=== PATIENT | female | born 1990 | race Caucasian/White ===

== ENCOUNTER 2016-05-20 00:15 | Emergency (ER) | payer SELFPAY ==
[2016-05-20 00:31] VITALS: BP 118/70; PULSE 79; TEMP 98.3; BMI 29.8
--- NOTE | 2016-05-20 00:37 | EDPRACDOC ---
- General Information Chief Complaint: Earache Stated Complaint: RT EARACHE Time Seen by Provider: 05/20/16 00:32 Home Medications: Home Medications Fluticasone Propionate [Flonase Nasal Metz] 2 spray ROQEU DAILY #1 each 05/20/16 Ibuprofen Tablet [Motrin] 800 mg PO TID PRN #30 tab 05/20/16 Loratadine/Pseudoephedrine Sul [Claritin-D 12 Hour Tablet] 1 each PO BID #30 tab.sr.12h 05/20/16 Allergies/Adverse Reactions: Allergies Allergy/AdvReac Type Severity Reaction Status Date / Time No Known Allergies Allergy Verified 05/20/16 00:30 - History of Present Illness Onset: 2 DAYS HPI: PT STATES THAT SHE SNEEZED 2 DAYS AGO, HAS HAD SEVERE THROBBING PAIN IN RIGHT EAR SINCE, STATES RIGHT SIDE OF HER FACE FEELS "NUMB AND TINGLY", PT DENIES FEVER OR CHILLS, NO N/V/D. PT STATES USING "GOODY POWDER" WITHOUT RELIEF. Location: right ear Context: Reports: Spontaneous Onset Recently Treated Ear Infection: Reports: No Pain Severity: Reports: Severe Associated Signs & Symptoms: Reports: Other (RIGHT FACIAL PAIN/TINGLING, SNEEZING). Denies: Fever, Chills, Discharge, Runny Nose, Sore Throat, Toothache ED Past Medical History - History Reviewed Yes Nurses notes reviewed and agree except as marked No Past Medical History: Yes Patient has no past medical history - Patient Medical History Systemic History: Denies: Cancer Surgical History: Reports: Cholecystectomy, Tonsillectomy/Adnoidectomy - Social Medical History Smoking Status: Heavy tobacco smoker (5 or more cigarettes/day or daily pipe/ cigar) EDM Review of Systems - Review of Systems Constitutional: negative: Chills, Fever Eyes: negative: Blurred Vision, Double Vision Ears: Pain. negative: Drainage Throat: negative: Pain Nose: negative: Congestion, Discharge Respiratory: negative: Cough, Shortness of Breath, Wheezing Gastrointestinal: negative: Diarrhea, Vomiting Neurological: negative: Headache - Physical Exam Constitutional: Alert (Awake), No apparent distress Oriented to: Time, Person, Place Last recorded Vital Signs: Last Vital Signs Temp 98.3 F 05/20/16 00:22 Pulse 79 05/20/16 00:22 Resp 20 05/20/16 00:22 BP 118/70 05/20/16 00:22 Pulse Ox 99 05/20/16 00:22 Oxygen Pulse Oxygen Saturation 99 O2 Device Room Air Oxygen Flow Rate Fraction of Inspired Oxygen ( FIO2) - HEENT Head: Normal ( normocephalic) Eye Exam: Normal (PERRL, EOMI, Sclera white) Oropharynx: Normal (Pharynx:Moist without exudate,Gums-no swelling) Tympanic Membrane: Bulging, Dull. negative: Perforated, Retracted ENT EAC: Normal TMJ: Normal Nose: No Symptoms Reported (septum midline) Neck: Normal (FROM, trachea at midline) - Respiratory/Cardiovascular Respiratory: Normal - CTA (BBS clear to auscultation without adventitious sounds ) Cardiovascular: Normal (RRR without murmur, gallop or rub) - Integumentary Skin: Normal, Warm, Dry Lymphatics: Normal (no adenopathy) - Neurologic Memory Impaired: Normal Motor Function: Normal (Normal tone, Pulses 2+ No cyanosis or edema, FROM) Cranial Nerve: Normal (CN II-X11 intact sensation, strength 5/5) Cerebellar: Normal Mood Description: Normal Perception: Normal - Differential Diagnosis Otitis Externa, Otitis Media, Perforation, Sinusitis Decision Time to Discharge: 00:37 - Departure Disposition: Home Condition: Stable Final Diagnosis: Otalgia, right ear Instructions: Earache (ED) Education/Counseling Given To: Patient Education/Counseling Given Regarding: Diagnosis, Treatment, Prognosis, Follow Up Referrals: None,No Provider [Primary Care Provider] - One Week Prescriptions: New Fluticasone Propionate [Flonase Nasal Metz] 2 spray ROQUE DAILY #1 each Ibuprofen Tablet [Motrin] 800 mg PO TID PRN #30 tab PRN Reason: Pain Loratadine/Pseudoephedrine Sul [Claritin-D 12 Hour Tablet] 1 each PO BID #30 tab.sr.12h Discontinued Sulfamethoxazole/Trimethoprim [Bactrim Ds Tablet] 1 tab PO BID #14 tab Hydrocodone Bit/Acetaminophen [Lortab 5/325] 1 tab PO Q4-6H PRN #15 tab PRN Reason: Pain Cephalexin Monohydrate [Keflex] 500 mg PO Q6H #20 cap Ondansetron [Zofran Odt] 4 mg PO TID PRN #10 tab.rapdis PRN Reason: Nausea/Vomiting Additional Instructions: REST, DRINK PLENTY OF FLUIDS, USE TYLENOL NEEDED FOR PAIN.
[2016-05-20] MEDS ORDERED: IBUPROFEN 800 MG TAB PO ONE (00:39)
== END 2016-05-20 00:57 | disposition home or self-care (01) ==
LOC: ED 00:15
DX: H92.01 Otalgia, right ear (principal)
CPT/HCPCS: 99283; J3490